=== PATIENT | male | born 1990 | race Two or more races ===

== ENCOUNTER 2018-10-29 15:57 | Emergency (ER) | payer BC, OTHER ==
[~2018-10-29] VITALS: Ht 167.6 cm; Wt 77.1 kg
[2018-10-29 16:40] VITALS: BP 134/80
[2018-10-29] MEDS ORDERED: IBUPROFEN 800 MG TAB PO ONE (19:45)
[2018-10-29] MEDS ORDERED: METHOCARBAMOL 500 MG TAB PO ONE (19:45)
== END 2018-10-29 20:20 | disposition home or self-care (01) ==
LOC: ER 16:00
DX: M54.5 Low back pain (principal); V49.49XA Driver injured in collision with other motor vehicles in traffic accident, initial encounter; Y93.89 Activity, other specified; Y99.8 Other external cause status; Y92.410 Unspecified street and highway as the place of occurrence of the external cause
CPT/HCPCS: 72040